=== PATIENT | female | born 1995 | race Caucasian/White ===

== ENCOUNTER 2020-06-21 12:02 | Emergency (ER) | payer OTHER ==
[~2020-06-21] VITALS: Ht 160 cm; Wt 91.0 kg
[2020-06-21] MEDS ORDERED: GABA-1181 PO (12:40)
[2020-06-21] MEDS ORDERED: LAMO100 PO (12:40)
[2020-06-21] MEDS ORDERED: ARIP10TA8 PO (12:40)
[2020-06-21] MEDS ORDERED: LITH300C3 PO (12:40)
[2020-06-21] MEDS ORDERED: OMEP20 PO (12:40)
[2020-06-21] MEDS ORDERED: METHOCARBAMOL 500 MG TABLET PO ONE (13:00)
[2020-06-21] MEDS ORDERED: KETOROLAC TROMETHAMINE 30 MG/ML VIAL IM ONE (13:00)
[2020-06-21] MEDS ORDERED: LIDOCAINE 5% TRANSDERMAL PATCH TD ONE (13:00)
[2020-06-21 14:38] VITALS: BP 115/57
== END 2020-06-21 14:40 | disposition home or self-care (01) ==
LOC: EMS 12:05
DX: M25.512 Pain in left shoulder (principal); V49.9XXA Car occupant (driver) (passenger) injured in unspecified traffic accident, initial encounter; Y93.89 Activity, other specified; Y92.89 Other specified places as the place of occurrence of the external cause; Y99.8 Other external cause status
CPT/HCPCS: 71046; 73030; 96372; 99284; J1885; 99283